=== PATIENT | male | born 2000 | race Caucasian/White ===

== ENCOUNTER 2023-12-19 07:33 | Inpatient (IN) | payer BC, OTHER ==
[2023-12-19] MEDS: ONDANSETRON 4 MG/2 ML VIAL IVP STA (07:45)
--- NOTE | 2023-12-19 07:51 | ED ---
General Adult HPI - General Chief complaint: Altered Mental Status Stated complaint: AMS Time Seen by Provider: 12/19/23 07:35 Source: patient, EMS Mode of arrival: EMS Limitations: altered mental status - History of Present Illness Initial comments: Dictation was produced using [employer] dictation software. please excuse any grammatical, word or spelling errors. Chief Complaint: 23-year-old male presents with altered mental status History of Present Illness: Patient 23-year-old male he is a poor historian. Patient presents to the ER after being found altered. There was concern that patient may have suffered a seizure. Is found altered in a car parked at a gas station. Patient is awake and alert however is confused. It is unclear what patient's baseline is. He states that he has history of cerebral palsy. EMS states that patient had been having significant bouts of dry heaving and vomiting. The ROS documented in this emergency department record has been reviewed and confirmed by me. Those systems with pertinent positive or negative responses have been documented in the HPI. All other systems are other negative and/or noncontributory. - Related Data Home Medications Medication Instructions Recorded Confirmed Carbidopa-Levodopa 25-100 mg 1 tab PO BID 12/19/23 12/19/23 [Sinemet 25-100] Lacosamide 100 mg PO BID 12/19/23 12/19/23 tiZANidine HCL 4 mg PO QID 12/19/23 12/19/23 Allergies Allergy/AdvReac Type Severity Reaction Status Date / Time No Known Allergies Allergy Verified 12/19/23 07:43 Review of Systems ROS Statement: Those systems with pertinent positive or pertinent negative responses have been documented in the HPI. ROS Other: All systems not noted in ROS Statement are negative. Past Medical History Past Medical History: Unable to Obtain Past Surgical History: Unable to Obtain Past Psychological History: Unable to Obtain Smoking Status: Never smoker Past Alcohol Use History: Unable to Obtain Past Drug Use History: Unable to Obtain General Exam - General Exam Comments Initial Comments: PHYSICAL EXAM: General Impression: Alert and oriented x2/4, not in acute distress HEENT: Normocephalic atraumatic, extra-ocular movements intact, pupils equal and reactive to light bilaterally, mucous membranes moist. Cardiovascular: Heart regular rate and rhythm Chest: Able to complete full sentences, no retractions, no tachypnea Abdomen: abdomen soft, non-tender, non-distended, no organomegaly Musculoskeletal: Pulses present and equal in all extremities, no peripheral edema Motor: no focal deficits noted Neurological: CN II-XII grossly intact, no focal motor or sensory deficits noted Skin: Intact with no visualized rashes Psych: Tangential speech Limitations: altered mental status Course Vital Signs 12/19/23 12/19/23 12/19/23 07:38 08:00 08:45 Pulse Rate 103 H 72 74 Respiratory 18 18 17 Rate Blood Pressure 127/88 113/95 106/71 O2 Sat by Pulse 97 97 98 Oximetry 12/19/23 12/19/23 12/19/23 10:00 11:00 12:00 Pulse Rate 51 L 45 L 49 L Respiratory 16 16 17 Rate Blood Pressure 113/63 110/63 110/69 O2 Sat by Pulse 97 97 98 Oximetry 12/19/23 12:18 Pulse Rate 98 Respiratory 16 Rate Blood Pressure O2 Sat by Pulse 95 Oximetry - Reevaluation(s) Reevaluation #1: 12/19/23 10:39 More history was obtained from patient at a later time. States that he ran out of his Vimpat 2 days ago. He has history of seizure. 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 Reevaluation #2: 12/19/23 12:12 Patient was waiting in the ER for family to arrive when at around 12:10 PM I was notified that patient had a seizure that lasted for less than a minute. Clinical presentation concerning for status epilepticus. Patient was given his home dose of Vimpat approximately 2 hours prior to his seizure. Reevaluation #3: 12/19/23 12:31Case discussed with Dr. Mcdonald of neurology states that we should give patient 200 mg of IV Vimpat. Dr. Mcdonald did feel that patient is appropriate for hospital admission here at our facility. EKG Findings - EKG Comments: EKG Findings:: My EKG interpretation: Ventricular rate 89, sinus rhythm,. 166, cures 95, QTc 426. No LA prolongation, no QTC prolongation, no ST or T-wave changes noted. Overall, this EKG is unremarkable Medical Decision Making - Medical Decision Making Was pt. sent in by a medical professional or institution (, PA, EXPERIM[employer], urgent care, hospital, or long term...) When possible be specific @ -No Did you speak to anyone other than the patient for history (EMS, parent, family, police, friend...)? What history was obtained from this source @ -EMS as described above Did you review nursing and triage notes (agree or disagree)? Why? @ -I reviewed and agree with nursing and triage notes Were old charts reviewed (outside hosp., previous admission, EMS record, old EKG, old radiological studies, urgent care reports/EKG's, long term records)? Report findings @ -No old charts were reviewed Differential Diagnosis (chest pain, altered mental status, abdominal pain women, abdominal pain men, vaginal bleeding, musculoskeletal, weakness, fever, dyspnea, syncope, headache, dizziness, GI bleed, back pain, seizure, CVA, palpatations, mental health)? @ -Differential Seizure: Recurrent seizure disorder, febrile seizure, alcohol withdrawal, stimulants, meningitis, encephalitis, intercranial hemorrhage, intracranial tumor, stroke, eclampsia, thyrotoxicosis, hypocalcemia, hyponatremia, hypernatremia, hypomagnesemia, psychogenic, this is not meant to be an all-inclusive list. EKG interpreted by me (3pts min.). @ -See above X-rays interpreted by me (1pt min.). @ -None done CT interpreted by me (1pt min.). @ -CT brain shows no acute processes. Patient does have large CSF fluid density in the right cerebral convex. U/S interpreted by me (1pt. min.). @ -None done What testing was considered but not performed or refused? (CT, X-rays, U/S, labs)? Why? @ -None What meds were considered but not given or refused? Why? @ -None Was smoking cessation discussed for >3mins.? @ -No Were there social determinants of health that impacted care today? How? (Homelessness, low income, unemployed, alcoholism, drug addiction, transportation, low edu. Level, literacy, decrease access to med. care, fci, rehab)? @ -No Was there de-escalation of care discussed even if they declined (Discuss DNR or withdrawal of care, Hospice)? DNR status @ -No What co-morbidities impacted this encounter? (DM, HTN, Smoking, COPD, CAD, Cancer, CVA, ARF, Chemo, Hep., AIDS, mental health diagnosis, sleep apnea, morbid obesity)? @ -Seizure disorder Was patient admitted / discharged? Hospital course, mention meds given and route, prescriptions, significant lab abnormalities, going to OR and other pertinent info. 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 Allegedly he did have a seizure prior to coming to the ER. Vital signs upon arrival are within acceptable limits. He did seem very confused upon arrival however after several minutes he was reevaluated and much more coherent. Laboratory evaluation obtained. CBC, coag panel metabolic panel is unremarkable. Patient was waiting to be discharged once family arrived however suffered another seizure. Patient's presentation concerning for status epilepticus. Case discussed with neurologist as described above. Patient will be admitted with consultation to neurology. Admitted to [facility] Did you discuss the management of the patient with other professionals (professionals i.e. , PA, EXPERIM[employer], lab, RT, psych nurse, health and social care teacher, manager of marketing, teacher, community arts officer, field nurse case manager)? Give summary @ -See above Was critical care preformed (if so, how long)? @ -Yes, 33 minutes for status epilepticus Undiagnosed new problem with uncertain prognosis? @ -No Drug Therapy requiring intensive monitoring for toxicity (Heparin, Nitro, Insulin, Cardizem)? @ -No Were any procedures done? @ -No Diagnosis/symptom? Acute, or Chronic, or Acute on Chronic? Uncomplicated (without systemic symptoms) or Complicated (systemic symptoms)? @ -Seizure Side effects of treatment? @ -No Exacerbation, Progression, or Severe Exacerbation? @ -No Poses a threat to life or bodily function? How? (Chest pain, [place], [place], pneumonia, PE, COPD, DKA, ARF, appy, cholecystitis, CVA, Diverticulitis, Homicidal, Suicidal, threat to staff... and all critical care pts) @ -yes - Lab Data Result diagrams: 12/19/23 07:52 12/19/23 07:52 Lab Results 12/19/23 12/19/23 12/19/23 Range/Units 07:52 07:52 07:52 WBC 6.5 (3.8-10.6) k/uL RBC 4.73 (4.30-5.90) m/uL Hgb 14.3 (13.0-17.5) gm/dL Hct 43.4 (39.0-53.0) % MCV 91.6 (80.0-100.0) fL MCH 30.1 (25.0-35.0) pg MCHC 32.9 (31.0-37.0) g/dL RDW 12.1 (11.5-15.5) % Plt Count 281 (150-450) k/uL MPV 7.6 Neutrophils % 46 % Lymphocytes % 38 % Monocytes % 6 % Eosinophils % 6 % Basophils % 1 % Neutrophils # 3.0 (1.3-7.7) k/uL Lymphocytes # 2.5 (1.0-4.8) k/uL Monocytes # 0.4 (0-1.0) k/uL Eosinophils # 0.4 (0-0.7) k/uL Basophils # 0.1 (0-0.2) k/uL PT 10.7 (10.0-12.5) sec INR 1.0 (<1.2) APTT 20.9 L (22.0-30.0) sec Sodium 140 (137-145) mmol/L Potassium 3.6 (3.5-5.1) mmol/L Chloride 106 (98-107) mmol/L Carbon Dioxide 15 L (22-30) mmol/L Anion Gap 19 mmol/L BUN 11 (9-20) mg/dL Creatinine 0.67 (0.66-1.25) mg/dL Est GFR (CKD-EPI)AfAm >90 (>60 ml/min/1.73 sqM) Est GFR (CKD-EPI)NonAf >90 (>60 ml/min/1.73 sqM) Glucose 125 H (74-99) mg/dL Calcium 10.2 (8.4-10.2) mg/dL Magnesium 2.1 (1.6-2.3) mg/dL Total Bilirubin 0.7 (0.2-1.3) mg/dL AST 38 (17-59) U/L ALT 14 (4-49) U/L Alkaline Phosphatase 52 (38-126) U/L Total Protein 7.2 (6.3-8.2) g/dL Albumin 4.7 (3.5-5.0) g/dL Urine Opiates Screen (NotDetected) Ur Oxycodone Screen (NotDetected) Urine Methadone Screen (NotDetected) Ur Barbiturates Screen (NotDetected) U Tricyclic Antidepress (NotDetected) Ur Phencyclidine Scrn (NotDetected) Ur Amphetamines Screen (NotDetected) U Methamphetamines Scrn (NotDetected) U Benzodiazepines Scrn (NotDetected) Urine Cocaine Screen (NotDetected) U Marijuana (THC) Screen (NotDetected) 12/19/23 Range/Units 08:57 WBC (3.8-10.6) k/uL RBC (4.30-5.90) m/uL Hgb (13.0-17.5) gm/dL Hct (39.0-53.0) % MCV (80.0-100.0) fL MCH (25.0-35.0) pg MCHC (31.0-37.0) g/dL RDW (11.5-15.5) % Plt Count (150-450) k/uL MPV Neutrophils % % Lymphocytes % % Monocytes % % Eosinophils % % Basophils % % Neutrophils # (1.3-7.7) k/uL Lymphocytes # (1.0-4.8) k/uL Monocytes # (0-1.0) k/uL Eosinophils # (0-0.7) k/uL Basophils # (0-0.2) k/uL PT (10.0-12.5) sec INR (<1.2) APTT (22.0-30.0) sec Sodium (137-145) mmol/L Potassium (3.5-5.1) mmol/L Chloride (98-107) mmol/L Carbon Dioxide (22-30) mmol/L Anion Gap mmol/L BUN (9-20) mg/dL Creatinine (0.66-1.25) mg/dL Est GFR (CKD-EPI)AfAm (>60 ml/min/1.73 sqM) Est GFR (CKD-EPI)NonAf (>60 ml/min/1.73 sqM) Glucose (74-99) mg/dL Calcium (8.4-10.2) mg/dL Magnesium (1.6-2.3) mg/dL Total Bilirubin (0.2-1.3) mg/dL AST (17-59) U/L ALT (4-49) U/L Alkaline Phosphatase (38-126) U/L Total Protein (6.3-8.2) g/dL Albumin (3.5-5.0) g/dL Urine Opiates Screen Not Detected (NotDetected) Ur Oxycodone Screen Not Detected (NotDetected) Urine Methadone Screen Not Detected (NotDetected) Ur Barbiturates Screen Not Detected (NotDetected) U Tricyclic Antidepress Not Detected (NotDetected) Ur Phencyclidine Scrn Not Detected (NotDetected) Ur Amphetamines Screen Not Detected (NotDetected) U Methamphetamines Scrn Not Detected (NotDetected) U Benzodiazepines Scrn Not Detected (NotDetected) Urine Cocaine Screen Not Detected (NotDetected) U Marijuana (THC) Screen Detected H (NotDetected) Disposition Clinical Impression: Status epilepticus Disposition: ADMITTED IP TO THIS [facility] Condition: Fair Instructions (If sedation given, give patient instructions): Seizure/Epilepsy Discharge Instructions & Follow-Up Referrals: None,Stated [Primary Care Provider] - 1-2 days Decision Time: 12:35
[2023-12-19 08:12] LABS: Basophils # (A) 0.1 k/uL (0-0.2); Basophils % (A) 1 %; Eosinophils # (A) 0.4 k/uL (0-0.7); Eosinophils % (A) 6 %; HCT 43.4 % (39.0-53.0); HGB 14.3 gm/dL (13.0-17.5); Lymphocytes # (A) 2.5 k/uL (1.0-4.8); Lymphocytes % (A) 38 %; MCH 30.1 pg (25.0-35.0); MCHC 32.9 g/dL (31.0-37.0); MCV 91.6 fL (80.0-100.0); Mean Platelet Volume 7.6; Monocytes # (A) 0.4 k/uL (0-1.0); Monocytes % (A) 6 %; Neutrophils % (A) 46 %; Platelet Count 281 k/uL (150-450); RBC 4.73 m/uL (4.30-5.90); RDW 12.1 % (11.5-15.5); WBC 6.5 k/uL (3.8-10.6)
[2023-12-19 08:19] LABS: AST 38 U/L (17-59); African American GFR (CKD) >90 (>60 ml/min/1.73 sqM); Albumin 4.7 g/dL (3.5-5.0); Alkaline Phosphatase 52 U/L (38-126); Anion Gap 19 mmol/L; Blood Urea Nitrogen 11 mg/dL (9-20); Calcium 10.2 mg/dL (8.4-10.2); Carbon Dioxide 15 mmol/L (22-30); Chloride 106 mmol/L (98-107); Glucose 125 mg/dL (74-99); Magnesium 2.1 mg/dL (1.6-2.3); Non-African American GFR(CKD) >90 (>60 ml/min/1.73 sqM); Potassium 3.6 mmol/L (3.5-5.1); Sodium 140 mmol/L (137-145); Total Bilirubin 0.7 mg/dL (0.2-1.3); Total Protein 7.2 g/dL (6.3-8.2)
[2023-12-19 08:24] LABS: Prothrombin Time 10.7 sec (10.0-12.5)
[2023-12-19 08:26] LABS: ALT 14 U/L (4-49)
--- NOTE | 2023-12-19 08:28 | CT ---
EXAMINATION TYPE: CT brain wo con DATE OF EXAM: 12/19/2023 COMPARISON: None HISTORY: AMS. history of seizures CT DLP: 1095.7 mGycm. Automated Exposure Control for Dose Reduction was Utilized. TECHNIQUE: CT scan of the head is performed without contrast. FINDINGS: There is a large CSF fluid density in the right cerebral convexity with ex vacuo dilation of the right lateral ventricle which could be related to prior area of ischemia. Arachnoid cyst not excluded as there is mild thinning of the inner table of the calvarium at this level. Recommend follo w-up MRI. The ventricles and sulci are within normal limits in size. The globes are intact and the visualized sinuses are clear. No acute hemorrhage. IMPRESSION: There is a large CSF fluid density in the right cerebral convexity with ex vacuo dilation of the right lateral ventricle which could be related to prior area of ischemia. Arachnoid cyst not excluded. Recommend follow-up MRI.
[2023-12-19] MEDS: HALOPERIDOL LACTATE 5 MG/ML 1 ML VIAL IVP STA (09:02)
[2023-12-19 09:03] LABS: Partial Thromboplastin Time 20.9 sec (22.0-30.0)
[2023-12-19 10:28] LABS: Amphetamine Screen,Urine Not Detected (NotDetected); Barbiturate Screen,Urine Not Detected (NotDetected); Benzodiazepines Screen,Urine Not Detected (NotDetected); Cocaine Screen,Urine Not Detected (NotDetected); Methadone Screen, Urine Not Detected (NotDetected); Opiate Screen,Urine Not Detected (NotDetected); Oxycodone Screen, Urine Not Detected (NotDetected); Phencyclidine Screen,Urine Not Detected (NotDetected); Tricyclic Antidepressant,Urine Not Detected (NotDetected); Urn Cannabinoid Scrn Detected (NotDetected)
[2023-12-19] MEDS: LACOSAMIDE 50 MG TABLET PO STA (10:46)
[2023-12-19] MEDS: LORazepam 2 MG/ML INJ IV STA (12:11)
[2023-12-19] MEDS ORDERED: NALOXONE 0.4 MG/ML 1 ML VIAL IV PRN (12:31)
[2023-12-19] MEDS ORDERED: LORazepam 2 MG/ML INJ IV PRN (12:32)
[2023-12-19] MEDS: SODIUM CHLORIDE 0.9% 1,000 ML IV SCH (12:45)
[2023-12-19] MEDS: Lacosamide IV (ages 17+ yrs) 200 MG/20 ML ML IVP STA (12:46)
[2023-12-19] MEDS ORDERED: ONDANSETRON 4 MG/2 ML VIAL IVP PRN (14:12)
[2023-12-19] MEDS ORDERED: ACETAMINOPHEN TAB 325 MG TAB PO PRN (14:12)
[2023-12-19] MEDS ORDERED: tiZANidine 4 MG TAB PO PRN (18:37)
--- NOTE | 2023-12-19 18:38 | P.HPIM ---
History of Present Illness H&P Date: 12/19/23 23 year old M with PMH of cerebral palsy, history of seizure disorder presents to the ED after being brought by EMS for altered mental status. Patient is currently post ictal and majority of information is obtained from ED provider. Apparently found in [place] parked car [place] the gas station with altered mentation along with dry heaving and vomiting. Patient noted to have ran out of Vimpat 2 days ago. In the ED, patient had a seizure that required 2 mg IV Ativan. He was also loaded on Vimpat 200 mg IV and admitted for Neurology evaluation. Vital signs in the ED BP 107/54, HR 73, RR 15, T 99.5F, 98% on RA. CBC, Coag panel, CMP significant for APTT 20.9, bicarb 15, glu 125. Mag 2.1. UDS + marijuana. EKG NSR. CT brain large CSF fluid density right cerebral cortex convexity with ex vacuo dilation of the right lateral ventricle. General: non toxic, no distress, appears at stated age Derm: warm, dry Head: atraumatic, normocephalic, symmetric Eyes: EOMI, no lid lag, anicteric sclera Mouth: no lip lesion, mucus membranes moist Cardiovascular: S1S2 reg, no murmur Lungs: CTA bilateral, no rhonchi, no rales , no accessory muscle use Ext: no gross muscle atrophy, no edema, no contractures Neuro: Unable to perform. Patient is sleepy however easily arrousable. Based on my assessment of this patient, this patient meets a high complexity level of care. Seizure secondary to medication non compliance: Discussed with Dr. Mcdonald, load with Vimpat 200 mg IV. EEG ordered. Seizure and Fall precautions. Ativan 2 mg IV PRN for seizures. Telemetry monitoring. Metabolic acidosis due to above Marijuana abuse: Advised to quit. Large CSF fluid density likely arachnoid cyst CODE STATUS: FULL CODE DVT Prophylaxis: Lovenox SQ GI Prophylaxis: Designated medical POA if patient is not able to make medical decisions for themselves: I have reviewed the following business management consultant notes: ER note. I have reviewed the results of the following tests: As above. I have ordered the following tests: As above. I have discussed the care of this patient with the following independent historian: I have independently interpreted the following test below: EKG I have discussed the management of this patient with the following physician: Dr. Mcdonald Past Medical History Past Medical History: Seizure Disorder Additional Past Medical History / Comment(s): Cerebral Palsy History of Any Multi-Drug Resistant Organisms: None Reported Past Surgical History: Unable to Obtain Additional Past Surgical History / Comment(s): Left leg surgery for Cerebral palsy Past Anesthesia/Blood Transfusion Reactions: No Reported Reaction Smoking Status: Never smoker - Past Family History Mother Family Medical History: No Reported History Father Family Medical History: No Reported History Medications and Allergies Home Medications Medication Instructions Recorded Confirmed Type Carbidopa-Levodopa 25-100 mg 1 tab PO BID 12/19/23 12/19/23 History [Sinemet 25-100] Lacosamide 100 mg PO BID 12/19/23 12/19/23 History tiZANidine HCL 4 mg PO QID 12/19/23 12/19/23 History Allergies Allergy/AdvReac Type Severity Reaction Status Date / Time No Known Allergies Allergy Verified 12/19/23 07:43 Physical Exam Vitals: Vital Signs Temp Pulse Pulse Resp BP BP Pulse Ox 12/19/23 16:45 99.5 F 56 L 14 110/69 100 12/19/23 16:00 64 16 119/72 98 12/19/23 15:30 73 15 116/60 12/19/23 15:00 16 107/54 12/19/23 14:30 63 17 118/59 12/19/23 14:00 84 116/60 12/19/23 13:30 74 16 105/61 98 12/19/23 13:00 73 16 109/56 98 12/19/23 12:57 77 16 109/56 98 12/19/23 12:18 98 16 95 12/19/23 12:00 49 L 17 110/69 98 12/19/23 11:00 45 L 16 110/63 97 12/19/23 10:00 51 L 16 113/63 97 12/19/23 08:45 74 17 106/71 98 12/19/23 08:00 72 18 113/95 97 12/19/23 07:38 103 H 18 127/88 97 Intake and Output 12/19/23 12/19/23 12/19/23 06:59 14:59 22:59 Other: Weight 68.039 kg 68.039 kg Results CBC & Chem 7: 12/19/23 07:52 12/19/23 07:52 Labs: Abnormal Lab Results - Last 24 Hours (Table) 12/19/23 12/19/23 12/19/23 Range/Units 07:52 07:52 08:57 APTT 20.9 L (22.0-30.0) sec Carbon Dioxide 15 L (22-30) mmol/L Glucose 125 H (74-99) mg/dL U Marijuana (THC) Screen Detected H (NotDetected) Thrombosis Risk Factor Assmnt - Choose All That Apply Any of the Below Risk Factors Present?: No Other Risk Factors: No Other congenital or acquired thrombophilia - If yes, enter type in comment: No Thrombosis Risk Factor Assessment Level: Very Low Risk
--- NOTE | 2023-12-19 20:21 | EEG ---
ELECTROENCEPHALOGRAM REPORT PREAMBLE: This is a 23-year-old male with history of seizure disorder, came with breakthrough seizure. He has missed 2 days of seizure medications including Vimpat 200 mg b.i.d. The patient has a history of cerebral palsy. EEG FINDINGS: This is a 21-channel digital EEG recorded with video component utilizing 10/20 international system with referential and bipolar montages. The recording starts and continues with the patient being asleep, but does have diffuse low amplitude mixed theta and delta waves, with a lot of sleep spindles. Well-formed awake pattern was not seen during the study. Hyperventilation and photic stimulation were not done. No focal or generalized epileptiform activity was seen. IMPRESSION: This is probably a normal EEG during sleep. Wakefulness was not seen, therefore underlying encephalopathy cannot be ruled out. No focal, lateralized, or epileptiform activity was seen. MMJUANY / CAILIN: [id number] /
[2023-12-19] MEDS: CARBIDOPA-LEVODOPA 25-100 MG 1 EACH TAB PO SCH (20:56)
[2023-12-19] MEDS: LACOSAMIDE 50 MG TABLET PO SCH (20:56)
[2023-12-20 07:03] LABS: African American GFR (CKD) >90 (>60 ml/min/1.73 sqM); Anion Gap 5 mmol/L; Blood Urea Nitrogen 13 mg/dL (9-20); Calcium 9.7 mg/dL (8.4-10.2); Carbon Dioxide 31 mmol/L (22-30); Chloride 106 mmol/L (98-107); Glucose 85 mg/dL (74-99); Non-African American GFR(CKD) >90 (>60 ml/min/1.73 sqM); Potassium 4.6 mmol/L (3.5-5.1); Sodium 142 mmol/L (137-145)
--- NOTE | 2023-12-20 07:17 | P.CNNES ---
History of Present Illness Consult date: 12/19/23 Requesting physician: Scar Lewis Reason for Consult: Seizures History of Present Illness: Patient is a 23-year-old male who has history of cerebral palsy, with left spastic paresis, seizure disorder, came to the hospital by ambulance this morning at 7:33 AM after he was found to be altered, and suspected seizure. Apparently patient was found altered in the car parked at a gas station. Patient was awake and alert however confused. As per EMS flow sheet, when they arrived, patient was alert to verbal stimuli with inappropriate speech. Patient was pale, warm and diaphoretic. Bystanders on the location noted patient to be suspected to have a seizure history. Patient remained mildly combative during transport to the hospital. Patient's vitals at the scene was blood pressure 131/83, pulse rate 105, respiration 24, saturation 91%. Blood sugar 112. Repeat saturation 97%. Patient's blood test shows normal CBC, PT/PTT, normal CMP. Urine drug screen positive for marijuana. EKG showed sinus rhythm, CT head showed large CSF fluid density in the right cerebral convexity with excellent vacuo dilation of the right lateral ventricle, which could be related to prior area of ischemia. Arachnoid cyst not excluded. Recommend follow-up MRI. I personally reviewed CT scan, and appears either old encephalomalacia or arachnoid cyst. Patient mentioned in the ER that his pharmacy [facility] closed off, therefore he ran out of his medications and did not take his medication for 2 days including Vimpat 100 mg twice a day. He was given his prescription of Vimpat 100 mg twice a day by the ED staff. He was planned to be discharged when at around 12:10 PM, patient had a seizure in the ER, that lasted for less than a minute. Clinical presentation concerning for status epilepticus. It is Discussed case, and patient was given a loading dose of Vimpat 200 mg IV and Ativan 2 mg IV. At present patient is postictal, sleeping. Patient's mother was also present in the ER, who provided additional history. Patient's mother states that she had a difficult labor, and she could not push the baby during his and he was born blue, and cried for 1 hour. Otherwise he was fine. CT was suspected when he did not walk until 15 months of age, and he used to "combat crawl". Further testing revealed evidence of cerebral palsy. He has left-sided weakness, uses left AFO for his foot but his cognitively intact. His first seizure occurred at age 16. He usually gets seizures about twice a year and gets grand mal seizure. His last seizure was about a year ago. He sometimes falls out of bed during a seizure, and has a convulsion, throws up which could be foaming or spitting. There is no tongue bite although sometimes he loses control of urine. Postictally he is confused. He usually has no warning, no aura prior to the seizure. No previous history of tobacco use. He drinks alcohol occasionally, occasional use of marijuana. Patient lives with his parents although he is independent. D enies diabetes or hypertension. Review of Systems Per patient's mother, he has spastic left side. He has an AFO for his left foot, but the type of work he does, he breaks the AFO. Therefore he is functioning without using AFO. Cognitively he is intact. Detailed ROS cannot be obtained because of mental status. ROS unobtainable: due to mental status Past Medical History Past Medical History: Seizure Disorder Additional Past Medical History / Comment(s): Cerebral Palsy History of Any Multi-Drug Resistant Organisms: None Reported Past Surgical History: Unable to Obtain Additional Past Surgical History / Comment(s): Left leg surgery for Cerebral palsy Past Anesthesia/Blood Transfusion Reactions: No Reported Reaction Smoking Status: Never smoker - Past Family History Mother Family Medical History: No Reported History Father Family Medical History: No Reported History Medications and Allergies Home Medications Medication Instructions Recorded Confirmed Type Carbidopa-Levodopa 25-100 mg 1 tab PO BID 12/19/23 12/19/23 History [Sinemet 25-100] Lacosamide 100 mg PO BID 12/19/23 12/19/23 History tiZANidine HCL 4 mg PO QID 12/19/23 12/19/23 History Allergies Allergy/AdvReac Type Severity Reaction Status Date / Time No Known Allergies Allergy Verified 12/19/23 07:43 Physical Examination - Vital Signs Vital Signs: Vital Signs Temp Pulse Pulse Resp BP BP Pulse Ox 12/20/23 03:18 97.6 F 60 16 106/58 98 12/19/23 23:20 98.3 F 80 16 119/51 94 L 12/19/23 19:51 99.5 F 86 16 103/51 96 07/24/24 16:45 99.5 F 56 L 14 110/69 100 12/19/23 16:00 64 16 119/72 98 12/19/23 15:30 73 15 116/60 12/19/23 15:00 16 107/54 12/19/23 14:30 63 17 118/59 12/19/23 14:00 84 116/60 12/19/23 13:30 74 16 105/61 98 12/19/23 13:00 73 16 109/56 98 12/19/23 12:57 77 16 109/56 98 12/19/23 12:18 98 16 95 12/19/23 12:00 49 L 17 110/69 98 12/19/23 11:00 45 L 16 110/63 97 12/19/23 10:00 51 L 16 113/63 97 12/19/23 08:45 74 17 106/71 98 12/19/23 08:00 72 18 113/95 97 12/19/23 07:38 103 H 18 127/88 97 Intake and Output 12/19/23 12/19/23 12/20/23 14:59 22:59 06:59 Other: Voiding Method Urinal Urinal Weight 68.039 kg 68.039 kg 55.8 kg Patient is a young male, who is laying in the bed in no acute distress. Patient is somnolent, postictal state. On repeated instructions, patient does wake up, and answers appropriately, but then goes back to sleep. Speech and michael guage functions are normal, although exam limited because of mental status. Patient can name and repeat very well. No aphasia or dysarthria. Attention, concentration is severely limited because of postictal state and fund of knowledge cannot be tested because of mental status. On cranial nerve examination, pupils are equal, round and reacting to light, visual martines are full on confrontation. Extraocular muscles are intact with no nystagmus. Face is symmetric, tongue protrudes to the midline. No evidence of tongue trauma. Palatal elevation and sensation normal, hearing and shoulder sh rug normal, facial sensation normal. On muscle strength testing, there is left pronator drift, and the left arm postures and has some writhing movement from his CP. However the strength is completely normal in the arms and legs distally and proximally bilaterally. Deep tendon reflexes brisker on the left side as compared to the right. Sensory to touch is equal. Cerebellar function showed no ataxia for [id number] testing. Tone is increased on the left side and bulk of muscles normal. Gait deferred. Per patient's mother, he walks with a slight left-sided spastic gait. On general examination, there is no carotid bruit or murmur, S1-S2 audible. Chest is clear on consultation. Abdomen is soft nontender. No organomegaly, bowel sounds present. Peripheral pulses are present. No peripheral edema. Results - Laboratory Findings CBC and BMP: 12/19/23 07:52 12/19/23 07:52 Abnormal Lab Findings: Abnormal Labs 12/19/23 12/19/23 12/19/23 07:52 07:52 08:57 APTT 20.9 L Carbon Dioxide 15 L Glucose 125 H U Marijuana (THC) Screen Detected H Assessment and Plan Assessment: * Breakthrough seizure, likely due to running out of his seizure medication for prior 2 days. * Altered mental status, likely due to postictal state, and from receiving Ativan. * Seizure disorder * History of cerebral palsy, with mild left-sided spastic paresis * Marijuana use. Plan: * Resume Vimpat 100 mg twice a day. * Patient at present is sleeping due to receiving Ativan/postictal. * EEG was probably a normal EEG during sleep. Wakefulness was not seen, therefore underlying encephalopathy cannot be ruled out. No focal, lateralized or epileptiform activity was seen. * Neurologically patient will be clear, if remains seizure free, and wakes up to normal state. * Recommended abstinence from marijuana. * Recommend follow-up with a neurologist within 2-4 weeks. * Discussed with primary physician. Thank you for the consult.
[2023-12-20 08:53] VITALS: BP 123/51; PULSE 89; RESP 17; TEMP 98.4
[2023-12-20] MEDS: ENOXAPARIN 40 MG/0.4 ML SYRINGE SQ SCH (08:54)
--- NOTE | 2023-12-20 11:27 | P.DS ---
Providers Date of admission: 12/19/23 12:32 Expected date of discharge: 12/20/23 Attending physician: Jarrett Renteria MD Consults: 12/19/23 12:13 Consult Physician Routine Consulting Provider: Latanya Mcdonald Consult Reason/Comments: seizures Do you want consulting provider notified?: Yes Primary care physician: Stated None Hospital Course: 23 year old M with PMH of cerebral palsy, history of seizure disorder presents to the ED after being brought by EMS for altered mental status. Patient is currently post ictal and majority of information is obtained from ED provider. Apparently found in a parked car at the gas station with altered mentation along with dry heaving and vomiting. Patient noted to have ran out of Vimpat 2 days ago. In the ED, patient had a seizure that required 2 mg IV Ativan. He was also loaded on Vimpat 200 mg IV and admitted for Neurology evaluation. Vital signs in the ED BP 107/54, HR 73, RR 15, T 99.5F, 98% on RA. CBC, Coag panel, CMP significant for APTT 20.9, bicarb 15, glu 125. Mag 2.1. UDS + marijuana. EKG NSR. CT brain large CSF fluid density right cerebral cortex convexity with ex vacuo dilation of the right lateral ventricle. 12/19 Patient was seen and examined. Awake and alert. Reports running out of medication 2 days ago. He is aware of a large cyst on the right side of his brain. Plans for discharge home today. Script for Vimpat sent to the pharmacy. Follow up with PCP and Dr. Keenan (Neurologist) within 1-2 days of discharge. General: non toxic, no distress, appears at stated age Derm: warm, dry Head: atraumatic, normocephalic, symmetric Eyes: EOMI, no lid lag, anicteric sclera Mouth: no lip lesion, mucus membranes moist Cardiovascular: S1S2 reg, no murmur Lungs: CTA bilateral, no rhonchi, no rales , no accessory muscle use Ext: no gross muscle atrophy, no edema, no contractures Neuro: No focal neurologic deficits Discharge Diagnosis: Seizure secondary to medication non compliance Metabolic acidosis due to above Marijuana abuse Large CSF fluid density likely arachnoid cyst This complex discharge took 35 minutes to complete. Patient Condition at Discharge: Stable Plan - Discharge Summary Discharge Rx Participant: Yes New Discharge Prescriptions: Continue Lacosamide 100 mg PO BID #60 tab Carbidopa-Levodopa 25-100 mg [Sinemet 25-100 mg] 1 tab PO BID tiZANidine HCL 4 mg PO QID Discharge Medication List Carbidopa-Levodopa 25-100 mg [Sinemet 25-100 mg] 1 tab PO BID 12/19/23 [History] tiZANidine HCL 4 mg PO QID 12/19/23 [History] Lacosamide 100 mg PO BID #60 tab 12/20/23 [Rx] Follow up Appointment(s)/Referral(s): Vladislav Keenan Jr, DO [REFERRING] - 1-2 Days None,Stated [Primary Care Provider] - 1-2 days Patient Instructions/Handouts: Seizure/Epilepsy Discharge Instructions & Follow-Up Activity/Diet/Wound Care/Special Instructions: Needs Vimpat reordered for dc Discharge Disposition: HOME SELF-CARE
== END 2023-12-20 12:13 | disposition home or self-care (01) | DRG 101 ==
LOC: EC 07:33 → 4SSUR 12:32 → 5NMEDONC 13:36 → 3SCARD 14:47
PROVIDERS: ADMIT Family Medicine; ATTEND Family Medicine
DX: G40.401 Other generalized epilepsy and epileptic syndromes, not intractable, with status epilepticus (principal); E87.20 Acidosis, unspecified; G80.9 Cerebral palsy, unspecified; F12.10 Cannabis abuse, uncomplicated; Z79.899 Other long term (current) drug therapy; T42.6X6A Underdosing of other antiepileptic and sedative-hypnotic drugs, initial encounter; Z91.128 Patient's intentional underdosing of medication regimen for other reason; G93.0 Cerebral cysts
CPT/HCPCS: 36415; 70450; 80048; 80053; 80306; 83735; 85025; 85610; 85730; 93005; 95819; 96374; 96375; 99291